=== PATIENT | male | born 1975 | race Caucasian/White ===

== ENCOUNTER 2019-10-14 08:00 | Outpatient (CLI) | payer OTHER, SELFPAY ==
--- NOTE | 2019-10-25 06:51 | SLEEP_ITS ---
CPAP Titration DATE OF STUDY: 10/14/2019 REASON FOR THE STUDY: History of obstructive sleep apnea syndrome 10 years ago, excessive daytime sleepiness and gasping. HISTORY: This patient is a 44-year-old male, 74 inches tall, weighing 290 pounds with a body mass index of 37.2. He was diagnosed with obstructive sleep apnea syndrome in 2007 at [facility]. He only used CPAP for about 2 months. Could not tolerate the mask. He had his left hip replaced in 2019, and now the right hip needed replacement as well. He sleeps poorly 2-4 hours at night with interrupted sleep. He feels tired during the day. He has been working rotating shifts. He has headaches on waking, drinks significant caffeine. He has loud constant snoring. He has trouble sleeping with cold. He gasps for breath at night. He rarely sweats at night or notices his heart pounding irregularly at night. On 07/07/2019, he had a home sleep test, which showed severe obstructive sleep apnea syndrome with a minimum saturation of 66%, which was sustained with 95 minutes below 88%. His AHI was 51.3. Oxygen desaturation index was 48.6. He had 195 apneas and 96 of them were obstructive, he had a few central or mixed apneas. Jose Manuel-Krause respiration is suspected. He returns at this time for titration. MEDICAL COMORBIDITIES: Atrial fibrillation, open-heart surgery for an atrial septal defect, bilateral hip replacements, knee surgery, cholecystectomy, and colitis. MEDICATIONS: 1. Colestipol 3 g daily. 2. Duloxetine 60 mg daily for anxiety. 3. Xarelto 20 mg a day. 4. Diltiazem 120 mg a day to control his atrial fib. HABITS: Half pack per day cigarettes. Caffeine, 5 servings a day. Alcohol, 1 to 2 servings a day. DESCRIPTION OF THE STUDY: On the Wayne Sleepiness Scale, his score was 5. This was conducted as a full night titration initially with CPAP, but he could not tolerate it, so quickly shifted to a bilevel titration. The stickK multiple channel system was used including EOG, EEG, submental EMG, EKG, nasal and oral airflow using thermistors, nasal pressure sensors, chest and abdominal belts for body position data and pulse oximetry. This study was scored using [facility] guidelines. Duration of the study was 443.1 minutes. The sleep time was 350.5 minutes. The sleep efficiency was 79.1%. Sleep latency was 12.4 minutes. REM latency was 155 minutes. There were 20 awakenings and he spent 18.6% of the study awake after sleep onset. This was 80.1 minutes. Sleep architecture showed 7.1% stage 1 sleep, 53.5% stage 2 sleep, 6% stage 3 sleep, and 14.7% stage REM. He spent 8.2% of the study supine, the remainder was nonsupine. Sleep architecture was abnormal with only 1 REM episode, but it was very dense and consolidated. This was in the middle of the study. The overall apnea-hypopnea index was 11. The obstructive index was 8.9, and the central index was 2.1. There was no supine REM unfortunately. The patient had 2 obstructive hypopneas in nonsupine REM for an index of 1.9. He had 1 central apnea and 15 obstructive hypopneas in supine non-REM for an index of 27. He had 14 obstructive apneas and 11 central apneas with 21 obstructive hypopneas in nonsupine non-REM for an index of 11. The supine index was 27. Nonsupine index was 9.1. Lowest desaturation 88%. The patient had 39 desaturations of 4% or greater for an index of 5.3. He spent 8.1 minutes below 88%, which was 1.8% of the study. The mean saturation was 94.1. AROUSALS: 142 arousals for an index of 19.1. He had 5 apneas for an index of 0.7, 13 hypopneas for an index of 1.8, 34 snores for an index of 4.6, 25 spontaneous for an index of 3.4, 65 limb movements for an index of 8.8. LIMB MOVEMENTS: 836 limb movements for an
== END 2019-10-14 08:01 | disposition home or self-care (01) ==
LOC: ANHCSM 08:00
PROVIDERS: PCP Internal Medicine; Visit Provider Internal Medicine Critical Care Medicine
DX: G47.33 Obstructive sleep apnea (adult) (pediatric) (principal)
CPT/HCPCS: 95811

== ENCOUNTER 2020-02-29 14:43 | Outpatient (CLI) | payer OTHER, SELFPAY ==
--- NOTE | ~2020-02-29 | XR_ITS ---
XR hip LT min 3V w AP pelvis 02/29/2020 15:10 Indication: Left hip pain Procedure: AP pelvis and 3 views left hip Comparison: No prior studies for comparison. Findings: There are bilateral total hip arthroplasties. Prosthesis appears well seated. No fracture o r traumatic malalignment. No focal soft tissue abnormality. No foreign bodies. Impression: 1: No acute bone or joint abnormality. Reviewed, dictated and finalized at location A. Impression: 1: No acute bone or joint abnormality.
== END 2020-02-29 14:44 | disposition home or self-care (01) ==
PROVIDERS: PCP Internal Medicine; Visit Provider Internal Medicine
DX: M25.552 Pain in left hip (principal); M54.5 Low back pain
CPT/HCPCS: 73502

== ENCOUNTER 2020-04-24 20:01 | Emergency (ER) | payer OTHER, SELFPAY ==
[2020-04-24 20:03] VITALS: BP 137/98; PULSE 66; RESP 19; TEMP 36.4; O2SAT 100
--- NOTE | 2020-04-24 21:00 | ED.BACK ---
HPI - Back Pain/Injury General Chief Complaint: Back Pain/Injury Stated Complaint: lower back Time Seen by Provider: 04/24/20 20:54 Source: patient Mode of arrival: ambulatory Limitations: no limitations History of Present Illness HPI Narrative: Patient is a 44-year-old male who presents to emergency department for evaluation of lower lumbar pain along the left side after slipping today catching himself did not go to the floor but has since had moderate aching pain worse with any activity or movement took ibuprofen with minimal improvement presents from urgent care for evaluation has history of chronic low back pain denies any bladder or bowel incontinence or retention or any radicular symptoms or paresthesias Related Data Allergies Allergy/AdvReac Type Severity Reaction Status Date / Time No Known Allergies Allergy Verified 05/04/17 16:14 poison ran Allergy Unknown Uncoded 12/03/18 15:31 Review of Systems Review of Systems: All systems reviewed & are unremarkable except as noted in HPI and below PMFSH Past Medical History Medical History Atrial fibrillation by electrocardiogram Back pain with sciatica Essential hypertension Primary osteoarthritis of both hips Tobacco use Family History Family History Father Cerebrovascular accident Mother Family history of type 2 diabetes mellitus Mild cognitive impairment Other Hypertension Social History Social History Smoking status: Former smoker Smoking end date: 08/24/15 Additional smoking assessment comments: Pt using nicotine replacement Alcohol intake: current Gender identity (if verbalized by the patient): Male Exam Narrative: Exam Narrative: GENERAL: Well-appearing, obese, uncomfortable, and in no acute distress. HEAD: Normocephalic, atraumatic. EYES: PERRLA and EOMI. ENT: Nares clear, no rhinorrhea or epistaxis. Mucous membranes moist. CHEST: Clear to auscultation. No respiratory distress. No wheezes rales or rhonchi HEART: Regular rate and rhythm. No murmur heard. EXTREMITIES: Normal range of motion. No edema. Midline and left lumbar tenderness to palpation SKIN: Warm, dry, no rash. NEURO: No focal deficits. Alert and oriented x3. Motor and sensory intact and symmetrical in the extremities PSYCH: Normal mood and affect. Course Course Emergency Course: Patient in the room in no distress does appear uncomfortable given medications and advised to follow-up with primary care Vital Signs Vital signs: Vital Signs Temperature 97.5 F L 04/24/20 20:03 Pulse Rate 66 04/24/20 20:03 Respiratory Rate 19 04/24/20 20:03 Blood Pressure 137/98 H 04/24/20 20:03 Pulse Oximetry 100 04/24/20 20:03 Temperature 97.5 F L 04/24/20 20:03 Pulse Rate 66 04/24/20 20:03 Respiratory Rate 19 04/24/20 20:03 Blood Pressure 137/98 H 04/24/20 20:03 Pulse Oximetry 100 04/24/20 20:03 MDM - Back Pain/Injury MDM Narrative Medical decision making narrative: Patients pain is positional in nature and localized to back without signs of cord compression or cauda equina based on neurological exam, skeletal exam and history. No fever or other significant factors to suggest osteomyelitis or spinal epidural abscess. No symptoms or signs to suggest pain is referred from abdominal or / cardiopulmonary sources. No pulsatile masses noted on exam. Patient ambulates with steady gait and is stable for outpatient management given case findings. Discharge Plan Discharge Clinical Impression: Lumbar back pain Patient Disposition: Home, Self-Care Condition: Stable Instructions: Antibiotic Form, Acute Low Back Pain (ED) Additional Instructions: Medications as needed and prescribed. Limit lifting and bending. You may apply heat or cold to the area as needed. Follow up with your doctor for further care in the next 5 days. Co
[2020-04-24] MEDS: diazePAM 5 MG TABLET PO (21:16)
[2020-04-24 21:31] VITALS: BP 132/60; PULSE 70; RESP 20; O2SAT 99
== END 2020-04-24 21:34 | disposition home or self-care (01) ==
PROVIDERS: Emergency Provider Emergency Medicine; PCP Internal Medicine
DX: M54.5 Low back pain (principal); I10 Essential (primary) hypertension; I48.91 Unspecified atrial fibrillation; M16.0 Bilateral primary osteoarthritis of hip; Z79.01 Long term (current) use of anticoagulants; Z87.891 Personal history of nicotine dependence
CPT/HCPCS: 99283; A9270

== ENCOUNTER → 2020-04-27 07:50 | Outpatient (CLI) | payer OTHER, SELFPAY ==
--- NOTE | ~2020-04-27 | MR_ITS ---
EXAMINATION: MR lumbar spine wo con DATE: 04/27/2020 08:27 INDICATION: Low back pain. Recent fall. TECHNIQUE: Magnetic resonance imaging (MRI) of the lumbar spine was performed without intravenous con trast. Sequences included sagittal T2-weighted FSE, sagittal T2-weighted FS FSE, sagittal T1-weighted FSE, and axial T2-weighted FSE. COMPARISON: Lumbar spine MRI 10/27/2017 FINDINGS: There is 12 degrees levoscoliosis of thoracolumbar spine. There is 3 mm retrolisthesis of L 2 on L3. There is mild chronic anterior wedging of T10-L2 vertebral bodies. There is a compression fr acture superior endplate of L5 with less than 1/5 loss of height, low signal fracture line, and bone marrow edema. There are Schmorl's nodes at most levels. There is mildly decreased disc height at L2-L 3 and L4-L5. The distal spinal cord signal intensity is normal. The conus medullaris is at T12-L1. Th e following disc levels are specifically discussed: L1-L2: There is a left central protrusion. There is no facet joint osteoarthritis. There is no neural foraminal stenosis. There is mild central canal stenosis. L2-L3: The disc is bulging and has an annular fissure. There is mild bilateral facet joint osteoarthr itis. There is moderate right and mild left neural foraminal stenosis. There is mild central canal st enosis. L3-L4: The disc is bulging and has an annular fissure. There is mild bilateral facet joint osteoarthr itis. There is mild bilateral neural foraminal stenosis. There is mild central canal stenosis. L4-L5: The disc is bulging with superimposed right central extrusion. There is mild bilateral facet j oint osteoarthritis. There is mild bilateral neural foraminal stenosis. There is mild central canal s tenosis. L5-S1: The disc is bulging and has an annular fissure. There is mild right and moderate left facet flora int osteoarthritis. There is mild bilateral neural foraminal stenosis. There is mild central canal st enosis. IMPRESSION: 1. Mild acute/subacute compression fracture of L5. 2. Mild lumbar spondylosis, stable from 10/27/2017. Reviewed, dictated and finalized at location A.
== END ==
PROVIDERS: PCP Internal Medicine; Visit Provider Nurse Practitioner
DX: M54.5 Low back pain (principal); S32.050A Wedge compression fracture of fifth lumbar vertebra, initial encounter for closed fracture; M47.816 Spondylosis without myelopathy or radiculopathy, lumbar region
CPT/HCPCS: 72148

== ENCOUNTER → 2021-02-06 12:29 | Outpatient (CLI) | payer OTHER, SELFPAY ==
--- NOTE | ~2021-02-06 | XR_ITS ---
XR lumbar spine 6V w bending DATE: 02/06/2021 13:49 INDICATION: Low back pain TECHNIQUE: Standing AP and lateral views. Standing flexion and extension lateral views. Bilateral supine oblique views COMPARISON: 04/2020 MRI lumbar spine FINDINGS: There is diffuse osteopenia. There is levoscoliosis of the thoracolumbar spine. Status post vertebroplasty at L5. There is mild to moderate degenerative disc disease of the lumbar spine. No spondylolysis or spondylolisthesis. No instability is evident on flexion or extension. Status post bilateral total hip arthroplasty. IMPRESSION: Diffuse osteopenia Status post vertebroplasty at L5 for history of mild acute/subacute compression fracture diagnosed on 04/2020 Mild to moderate degenerative disc disease lumbar spine Reviewed, dictated and finalized at location A.
--- NOTE | ~2021-02-06 | MR_ITS ---
EXAMINATION: MR lumbar spine wo con EXAM DATE: 02/06/2021 13:07 INDICATION: Lumbago, radiculopathy lumbago, radiculopathy . Left leg pain. States lifting injury 3-4 weeks ago, heard pop. History of fracture. TECHNIQUE: Multi-sequential, multiplanar MR images of the lumbar spine were obtained without contrast . Sagittal T1, T2, T2 fat saturation images. Axial T2 weighted images. Comparison is made to prior examination from 04/27/2020. FINDINGS: The conus medullaris terminates at the T12-L1 level and has normal signal intensity and mor phology. There is trivial mild compression fracture superior endplate of L5. Mild diffuse loss of th e lower thoracic and upper lumbar vertebral body heights. Mild to moderate diffuse thoracolumbar disc disease. There are no suspicious marrow signal abnormalities. Paraspinal soft tissue is unremarkable . Level by level evaluation: T12-L1: There is a minimal diffuse disc bulge. Facet arthropathy: Minimal. Neural foraminal stenosis: No stenosis. Central canal stenosis: No stenosis. L1-L2: There is a mild diffuse disc bulge. Facet arthropathy: Mild. Neural foraminal stenosis: No stenosis. Central canal stenosis: No stenosis. L2-L3: There is a mild diffuse disc bulge. Facet arthropathy: Mild. Neural foraminal stenosis: Mild right. Central canal stenosis: No stenosis. L3-L4: There is a mild diffuse disc bulge. Facet arthropathy: Mild. Neural foraminal stenosis: No stenosis. Central canal stenosis: No stenosis. L4-L5: There is a mild diffuse disc bulge. Facet arthropathy: Mild to moderate. Neural foraminal stenosis: Mild bilateral. Central canal stenosis: No stenosis. L5-S1: There is a mild diffuse disc bulge. Facet arthropathy: Mild. Neural foraminal stenosis: Mild to moderate right. Central canal stenosis: No stenosis. IMPRESSION: 1. Mild to moderate lumbar spondylosis. 2. Treated mild L5 compression fracture. Reviewed, dictated and finalized at location B.
== END ==
PROVIDERS: Visit Provider Nurse Practitioner Family
DX: M47.25 Other spondylosis with radiculopathy, thoracolumbar region (principal); M48.05 Spinal stenosis, thoracolumbar region; M47.27 Other spondylosis with radiculopathy, lumbosacral region; M48.07 Spinal stenosis, lumbosacral region; M41.9 Scoliosis, unspecified; M85.88 Other specified disorders of bone density and structure, other site
CPT/HCPCS: 72114; 72148

== ENCOUNTER → 2022-04-17 15:17 | Outpatient (CLI) | payer OTHER, SELFPAY ==
--- NOTE | ~2022-04-17 | XR_ITS ---
XR knee LT min 4V 04/17/2022 15:37 Indication: Left knee pain Procedure: 4 views left knee Comparison: No prior studies for comparison. Findings: There is moderate osteoarthritis of the left knee. No fracture or traumatic malalignment. N o significant joint effusion. No soft tissue abnormality. No foreign bodies. Impression: 1: Moderate osteoarthritis of the left knee. Reviewed, dictated and finalized at location A. Impression: 1: Moderate osteoarthritis of the left knee.
--- NOTE | ~2022-04-17 | XR_ITS ---
XR knee RT min 4V 04/17/2022 15:37 Indication: Right knee pain Procedure: 4 views right knee Comparison: No prior studies for comparison. Findings: There is mild-moderate tricompartment osteoarthritis. No fracture or traumatic malalignment . No significant joint effusion. Impression: 1: Mild-moderate osteoarthritis of the right knee. Reviewed, dictated and finalized at location A. Impression: 1: Mild-moderate osteoarthritis of the right knee.
== END ==
PROVIDERS: PCP Internal Medicine; Visit Provider Nurse Practitioner Family
DX: M17.0 Bilateral primary osteoarthritis of knee (principal)
CPT/HCPCS: 73564

== ENCOUNTER 2024-06-10 15:56 | Outpatient (CLI) | payer OTHER, SELFPAY ==
--- NOTE | ~2024-06-10 | MR_ITS ---
MRI of the lumbar spine Clinical History: Back pain Technique: Axial T2-weighted images, and sagittal T1-weighted, T2-weighted, and T2 fat-sat images wer e acquired. Findings: No acute fracture evident. There is minimal chronic loss of height of T12 and L1. Prior samir tebroplasty at L5 noted, without significant loss of height. There is minimal grade 1 retrolisthesis of L2 over L3. No suspicious bone marrow signal abnormality seen. At L1-L2, there is minimal disc bulge and mild facet arthropathy. There is minimal thecal sac maxine padilla at this level, partially due to mildly prominent epidural fat. Neural foramina are preserved. At L2-L3, there is mild disc bulge and moderate to advanced facet arthropathy. There is mild central canal stenosis/thecal sac compression, again with focally prominent epidural fat present. Neural fora odalis are preserved. At L3-L4, there is mild diffuse disc bulge with moderate facet arthropathy. Prominent epidural fat ag ain contributes to moderate thecal sac compression at this level. Neural foramina are preserved. At L4-L5, there is mild disc bulge and moderate facet arthropathy. No spinal canal stenosis or defini te neural foraminal narrowing. At L5-S1, there is minimal disc bulge and moderate facet arthropathy. No central canal stenosis or de finite neural foraminal narrowing. Paravertebral soft tissues are unremarkable. Impression: Moderate thecal sac compression the upper lumbar spine, as detailed above, with mild degenerative amaury nges, and probably most likely related to prominent epidural fat at these levels. Chronic compression deformities, as above. Reviewed, dictated and finalized at [facility]. Impression: Moderate thecal sac compression the upper lumbar spine, as detailed above, with mild degenerative changes, and probably most likely related to prominent epidu ral fat at these levels. Chronic compression deformities, as above.
== END 2024-06-10 15:57 | disposition home or self-care (01) ==
PROVIDERS: PCP Nurse Practitioner; Visit Provider Nurse Practitioner Family
DX: M51.87 Other intervertebral disc disorders, lumbosacral region (principal); M54.51 Vertebrogenic low back pain
CPT/HCPCS: 72148

== ENCOUNTER 2024-07-01 11:17 | Emergency (ER) | payer OTHER, SELFPAY ==
--- NOTE | ~2024-07-01 | XR_ITS ---
EXAMINATION: XR chest 2V DATE: 07/01/2024 12:00 INDICATION: Cough and shortness of breath. TECHNIQUE: Frontal and lateral views of the chest were obtained on 4 radiographs. COMPARISON: Chest 2 views 05/20/2017 FINDINGS: There is no pneumonia, pleural effusion, pneumothorax. The heart size is normal. Small medi an sternotomy wires are noted. IMPRESSION: 1. No acute cardiopulmonary disease. Reviewed, dictated and finalized at location A. RITY CONTROLS ASSESSOR
--- NOTE | 2024-07-01 11:22 | ED.URI ---
HPI - URI/Sore Throat General Chief Complaint: Upper Respiratory Infection Stated Complaint: upper respiratory infection Time Seen by Provider: 07/01/24 11:22 Source: patient Mode of arrival: ambulatory Limitations: no limitations History of Present Illness HPI Narrative: Patrick is a 48-year-old male patient presenting to the clinic today with complaints of sinus congestion, shortness of breath, cough, and chest congestion x1 week. He reports bringing up some green phlegm. He does have a history of sleep apnea and wears a CPAP at night. Former smoker. MD elicited complaint: cough, rhinorrhea, nasal congestion, sinus pain and other (Chest congestion) Related Data Home Medications Medication Instructions Recorded Confirmed amlodipine 5 mg tablet 5 mg PO DAILY 06/26/22 07/01/24 atorvastatin 80 mg tablet 40 mg PO DAILY 05/12/24 07/01/24 sertraline 50 mg tablet 75 mg PO DAILY 05/12/24 07/01/24 baclofen 10 mg tablet 10 mg PO BID muscle spasm 07/01/24 07/01/24 colestipol 1 gram tablet 1 g DIRECTED 07/01/24 07/01/24 tramadol 50 mg tablet 50 mg PO BID pain 07/01/24 07/01/24 Allergies Allergy/AdvReac Type Severity Reaction Status Date / Time No Known Allergies Allergy Verified 05/12/24 13:29 poison ran Allergy Unknown Unknown Uncoded 07/01/24 11:38 Review of Systems Review of Systems: Pertinent positives per HPI. Patient denies any fever, chills, rash, headache, visual changes, dizziness, chest pain, palpitations, nausea, vomiting, diarrhea, constipation, abdominal pain, or any urinary issues. [facility] Past Medical History Medical History ASD (atrial septal defect) Atrial fibrillation by electrocardiogram Back pain with sciatica Essential hypertension Primary osteoarthritis of both hips Tobacco use Surgical History Surgical History H/O hernia repair H/O knee surgery History of appendectomy History of hip replacement BL History of kyphoplasty 07/26/20 Hx of cholecystectomy Family History Family History Father Cerebrovascular accident Mother Family history of type 2 diabetes mellitus Lewy body dementia Lewy body Parkinson disease Other Hypertension Social History Social History (Reviewed 07/01/24 @ 11:55 by GALINA Maya Social History: Caffeine-daily Smoking packs per day: 0.5 Smoking cigarettes per day: 10.0 Smoking status: Former smoker Smoking end date: 02/09/21 Additional smoking assessment comments: Pt using nicotine replacement Alcohol intake: current Alcohol use details: daily-beer Substance use: never Lack of Transportation: No Lack of Food: Never True Current Housing: I Have Housing Concerned About Future Housing: No Difficulty Paying Gas/Electric Bills: No Difficulty Paying for Meds: No Currently Unemployed: No Education: Bachelor's Degree Difficulty w/ Childcare or Family Care: YES Living arrangements: with family Occupation/Education: occupation Gender identity (if verbalized by the patient): Male Comments At the time of my signature, I reviewed and agree with the nursing past medical, surgical, social, and family history. There is no relevant family history pertinent to the patient complaint. Exam Narrative: General: Well-developed, obese, in no apparent distress Head: Normocephalic, atraumatic Eyes: Pupils equally round and reactive to light bilaterally, EOM intact, sclera and conjunctive clear, no discharge, lids normal Ears: TMs intact and clear, ear canals clear, no drainage, grossly hearing normal. Nose: Nares patent, green nasal discharge, moderate inflammation, maxillary and frontal sinus tenderness. Mouth: Oral pharynx without lesions or masses, good dentition, MMM. Postnasal drip Neck: Supple, trachea midline, no enlargement of anterior or posterior cervical nodes, no thyroid masses or goiter palpable. Cardio: Regular rate and rhythm, s1 and s2 normal, no murmur appreciated. Resp: Faint wheezing and coarse lung sounds, no rhonchi, rales, wheezing or rubs Course Course Emergency Course: Portions of this record may have been created with voice recognition software. Level of Care: Express Care Visit Vital Signs Vital signs: Vital Signs Temperature 36.4 C 07/01/24 11:32 Pulse Rate 73 07/01/24 11:32 Respiratory Rate 16 07/01/24 11:32 Blood Pressure 142/88 H 07/01/24 11:32 Pulse Oximetry 98 07/01/24 11:32 Oxygen Delivery Room Air 07/01/24 11:32 Temperature 36.4 C 07/01/24 11:32 Pulse Rate 73 07/01/24 11:32 Respiratory Rate 16 07/01/24 11:32 Blood Pressure 142/88 H 07/01/24 11:32 Pulse Oximetry 98 07/01/24 11:32 Oxygen Delivery Room Air 07/01/24 11:32 Vital signs reviewed MDM - URI/Sore Throat MDM Narrative Medical decision making narrative: At the time of visit patient is resting comfortably on the exam table. Patient appears to be nontoxic. Diagnostics: Chest x-ray was performed and was negative for any acute cardiopulmonary process. Plan: I suspect patient has sinusitis/bronchitis. Prescription for Tessalon Perles, prednisone, Augmentin, and albuterol inhaler. Supportive measures were discussed with the patient and they voiced understanding discharge instructions and agrees to treatment plan. Return precautions reviewed Differential Diagnosis Differential diagnosis: Likely upper respiratory infection, otitis media, sinusitis, viral infection, bronchitis, influenza, pharyngitis and other (COVID) Discharge Plan Discharge Clinical Impression: Sinobronchitis Patient Disposition: Home, Self-Care Condition: Stable Instructions: Antibiotic Form, Acute Bronchitis (ED), Rhinosinusitis (ED) Additional Instructions: Chest x-rays negative for any acute cardiopulmonary process. I suspect you have acute sinobronchitis Take prescription medications only as prescribed-Augmentin, Tessalon Perles, prednisone, and albuterol inhaler Increase fluids and stay well hydrated Tylenol/motrin for pain/fever Flonase and OTC antihistamines as directed Vicks vapor rub to open sinuses Sinus rinses for congestion Cepacol spray, cough drops, throat lozenges, warm tea with honey/lemon, gargle salt water to soothe throat BRAT diet for diarrhea Clear liquids x 24 hours then advance as tolerated for nausea/vomiting Go to the ED if you develop a worsening in your condition- high fever not controlled by Tylenol or Motrin, dehydration, weakness, lethargy, shortness of breath, or chest pain. Follow up with your PCP in 3-5 days if symptoms persist. Prescriptions: New benzonatate 200 mg capsule 200 mg PO TID 7 Days Qty: 21 0RF prednisone 20 mg tablet 40 mg PO DAILY 5 Days Qty: 10 0RF albuterol sulfate 90 mcg/actuation HFA aerosol inhaler 2 puff inhalation Q4-6H PRN (Reason: shortness of breath or wheezing) 30 Days Qty: 8.5 0RF amoxicillin-pot clavulanate 875-125 mg tablet 1 tablet PO Q12H 10 Days Qty: 20 0RF No Action tramadol 50 mg tablet 50 mg PO BID baclofen 10 mg tablet 10 mg PO BID colestipol 1 gram tablet 1 g DIRECTED Rx Instructions: TAKE INSTRUCTED BY YOUR PRESCRIBER Xarelto 20 mg tablet 20 mg PO QPM Qty: 30 0RF Rx Instructions: must administer with evening meal amlodipine 5 mg tablet 5 mg PO DAILY atorvastatin 80 mg tablet 40 mg PO DAILY sertraline 50 mg tablet 75 mg PO DAILY Rx Instructions: To be take with the 25mg tablet-DUE FOR APPOINTMENT IN MARCH sertraline 25 mg tablet 25 mg PO DAILY Qty: 90 1RF Rx Instructions: To be taken with the 50mg tablet-DUE FOR APPOINTMENT IN MARCH amoxicillin 500 mg tablet 2,000 mg PO ONCE Qty: 4 0RF Patient Comments: on hold for teeth cleaning Rx Instructions: To be taken 30-60 minutes prior to your dental procedure. Follow-up/Referrals: Horacio Benitez DO [Primary Care Provider] - Stand Alone Forms: Work/School Release IP Time of Disposition: 12:25 Quality NIHSS Nursing Documentation ED NIHSS nursing documentation: reviewed/agree
[2024-07-01 11:32] VITALS: BP 142/88; PULSE 73; RESP 16; TEMP 36.4; O2SAT 98
== END 2024-07-01 12:30 | disposition home or self-care (01) ==
PROVIDERS: Emergency Provider Nurse Practitioner Family; PCP Internal Medicine
DX: J32.9 Chronic sinusitis, unspecified (principal); J40 Bronchitis, not specified as acute or chronic; Q21.10 Atrial septal defect, unspecified; I48.91 Unspecified atrial fibrillation; I10 Essential (primary) hypertension; M16.0 Bilateral primary osteoarthritis of hip; G47.30 Sleep apnea, unspecified; Z96.643 Presence of artificial hip joint, bilateral
CPT/HCPCS: 71046; 99213; G0463

== ENCOUNTER 2024-08-22 14:12 | Outpatient (CLI) | payer OTHER, SELFPAY ==
--- NOTE | ~2024-08-22 | XR_ITS ---
XR knee LT 3V Ordering provider: Kaylen Regan NP History: . M25.569 - Pain in unspecified knee . Comparison: None. FINDINGS: BONES: No acute fracture or dislocation. JOINT SPACES: Severe Narrowing of the lateral compartment. Narrowing of the patellofemoral joint. Mar ginal osteophytes in the patella. SOFT TISSUES: Normal. IMPRESSION: No acute osseous abnormality left knee. Severe osteoarthritic changes. Reviewed, dictated and finalized at location A. SERVICE OBSERVER
== END 2024-08-22 14:13 | disposition home or self-care (01) ==
LOC: MICIMG 14:13
PROVIDERS: PCP Internal Medicine; Visit Provider Nurse Practitioner
DX: M17.12 Unilateral primary osteoarthritis, left knee (principal)
CPT/HCPCS: 73562

== ENCOUNTER 2025-02-21 09:36 | Outpatient (CLI) | payer OTHER, SELFPAY ==
--- OUTSIDE RECORDS SUMMARY | 2025-02-21 09:49 | XMS_ITS | Clinical Summary ---
Author Organization [facility] [address] Address [address] [place] [address] Care Team Providers Care Mechanical Integrity Engineer Name Role Phone Mary Benitez DO Primary Care Provider +1- [phone] Allergies No known active allergies Medications colestipol (COLESTID) 1 gram tablet Take 3 tablets (3 g total) by mouth daily Active acetaminophen (TYLENOL) 500 mg tablet Take 2 tablets (1,000 mg total) by mouth every 6 (six) hours as needed 02/11/2021 Active nitroglycerin (NITROSTAT) 0.[address] 0.4 mg under the tongue every 5 (five) minutes as needed 02/11/2021 Active HYDROcodone-acet aminophen (NORCO) 10-325 mg per tablet Take 1 tablet by mouth every 4 (four) hours as needed 10/15/2023 Active sertraline (ZOLOFT) 25 mg tablet Take 1 tablet (25 mg total) by mouth daily Take with 50 mg to equal 75 mg 09/29/2023 Active sertraline (ZOLOFT) 50 mg tablet Take 1 tablet (50 mg total) by mouth daily Take with 25 mg to equal 75 mg 09/29/2023 Active traMADoL (ULTRAM) 50 mg tablet Take 1 tablet (50 mg total) by mouth every 8 (eight) hours as needed 10/06/2023 Active baclofen (LIORESAL) 10 mg tablet Take 1 tablet (10 mg total) by mouth 3 (three) times a day Active amLODIPine (NORVASC) 5 mg tablet Take 1 tablet (5 mg total) by mouth daily 90 tablet 2 07/11/2024 Active atorvastatin (LIPITOR) 80 mg tabletIndication s:Chest pain, unspecified type Take 1 tablet (80 mg total) by mouth nightly 90 tablet 2 07/11/2024 Active Xarelto 20 mg tabletIndication s:Atrial fibrillation, unspecified type (HCC) TAKE 1 TABLET DAILY WITH DINNER 90 tablet 3 10/17/2024 Active Active Problems Problem Noted Date Diagnosed Date PVC (premature ventricular contraction) 10/17/19 25 Severe obesity 10/17/2024 Body mass index (BMI) 45.0-49.9, adult 5 Symptomatic bradycardia 06/19/2022 Tobacco use disorder 06/11/2020 Syncope and collapse 06/13/2019 Aftercare following right hip joint replacement surgery 05/06/2019 Primary osteoarthritis of left hip 11/18/2018 Overview (11/18/2018): Added automatically from request for surgery [id number] Hip pain, bilateral 06/18/2018 Lumbar disc herniation 03/09/2018 Overview (03/09/2018): Pain managed with very low dose naltrexone made at compounding pharmacy [facility] palsy 05/15/2017 Paroxysmal atrial fibrillation 04/17/2017 Assessment & Plan (05/31/2018 9:30 AM CDT): Continue Cardizem and Xarelto. Will repeat echocardiogram because last echo shows mild systolic heart failure and dilated aortic root. Assessment & Plan (11/12/2017 6:33 PM CDT): D/C amiodarone. Start metoprolol 25mg bid. Chest pain 04/17/2017 Assessment & Plan (11/12/2017 6:41 PM CDT): Atypical chest pain. However, if he continues to have chest pain, consider ischemic evaluation. Chronic anticoagulation 04/17/2017 Assessment & Plan (05/31/2018 9:31 AM CDT): No bleeding issues. Morbid obesity with BMI of 40.0-44.9, adult 03/25 Assessment & Plan (05/31/2018 9:31 AM CDT): Patient cannot exercise because of severe back pain. Counseled patient about the importance of diet modification to help him lose weight. Assessment & Plan (11/12/2017 6:34 PM CDT): Counseled regarding diet modification. He has severe back pain and cannot do much activities. VALENTINA (obstructive sleep apnea) 04/17/2017 Assessment & Plan (05/31/2018 9:31 AM CDT): Patient is still not were drink CPAP. He has to undergo sleep study. Chronic fatigue 04/17/2017 Resolved Problems Problem Noted Date Diagnosed Date Resolved Date Primary osteoarthritis of right hip 03/29/2019 05/06/2019 Overview (03/29/2019): Added automatically from request for surgery [id number] Surgical History Surgery Date Site/Laterality Comments APPENDECTOMY Appendectomy HERNIA REPAIR Hernia repair FLUORO GUIDED INJECTION HIP RIGHT 05/27/2018 Right FL FLUORO GUIDED INJECTION H IP LEFT 06/15/2018 Left FLUORO GUIDED ASPIRATION OR INJECTION LARGE JOINT RIGHT 07/08/2018 Right FLUORO GUIDED ASPIRATION OR INJECTION LARGE JOINT LEFT 07/22/2018 Left CHOLECYSTECTOMY [id number] ASD REPAIR 08/24/1978 - 08/23/1979 HIP SURGERY Left JOINT REPLACEMENT Medical History Medical History Date Comments Atrial arrhythmia Atrial arrhyth navya Obstructive sleep apnea syndrome Obstructive sleep apnea Atrial septal defect ASD - Atria l septal defect Hx Other Medical Cholecystectomy planned History of knee surgery History of knee surgery Morbid obesity with BMI of 4 0.0-44.9, adult (HCC) 04/17/2017 Tobacco use 04/17/2017 VALENTINA (obstructive sleep apnea) 04/17/2017 Chronic fatigue 04/17/2017 Anxiety Atrial fibrillation (HCC) Hypertension Inflammatory bowel disease Peripheral neuropathy Scoliosis Heart beat abnormality Thyroid disease Hyperlipidemia Family History Medical History Relation Name Comments Arthritis Father Clotting disorder Father Heart disease Father Hypertension Father Mental illness Father Other Father Alive and well; Spondylolisthesis Father Stroke Father Arthritis Mother Diabetes Mother Hypertension Mother Mental illness Mother Other Mother Alive and well; Relation Name Status Comments Father Alive Mother Alive Social History Tobacco Use Types Packs/Day Years Used Date Smoking Tobacco: Former Cigarettes Smokeless Tobacco: Never Tobacco Cessation:Counseling Given: Not Answered Comments:Smoking History Packs/day: 20 Cigarettes Alcohol Use Standard Drinks/Week Comments Yes 4 (1 standard drink = 0.6 oz pur e alcohol) OCCASIONAL PHQ-2 Answer Date Recorded PHQ-2 Score 0 04/14/2019 Sex and Gender Information Value Date Recorded Sex Assigned at Not on file Legal Sex Male 7:58 PM PAYROLL CONSULTANT Gender Identity Not on file Sexual Orientation Not on file Obstetrics History Last Filed Vital Signs Vital Sign Reading Time Taken Comments Blood Pressure 124/90 10/17/2024 9:02 AM PAYROLL CONSULTANT Pulse 67 10/17/2024 9:02 AM PAYROLL CONSULTANT Temperature 36.3 C (97.3 F) 06/20/2022 5:30 PM CDT Respiratory Rate 16 10/22/2023 11:24 AM PAYROLL CONSULTANT Oxygen Saturation 97% 10/17/2024 9:02 AM PAYROLL CONSULTANT Inhaled Oxygen Concentration - - Weight 165.6 kg (365 lb) 10/17/2024 9:02 AM PAYROLL CONSULTANT Height 188 cm (6' 2) 10/17/2024 9:02 AM PAYROLL CONSULTANT Body Mass Index 46.86 10/17/2024 9:02 AM PAYROLL CONSULTANT Plan of Treatment Health Maintenance Due Date Last Done Comments Colon Cancer Screening-Colonoscopy 1976 Hepatitis C Screening 1976 Hepatitis B Screening 1994 Regular Well Visit/Exam 18-64 1994 Depression Screening 11/19/2019 11/18/2018 Influenza Vaccine (#1) 2025 DTaP/Tdap/Td Vaccine (2 - Td or Tdap) 04/19/2028 04/19/2018 Pneumococcal vaccine <65 Aged Out No longer eligible based on patient's age to complete this topic Medical Devices Implanted Type Area Clinic Physician Director Device Identifier Shelf Expiration Date Model / Serial / Lot [employer] [id number] Novato 58mm 36mm Hip Neutral Liner Acetabular Altrx Sterile Latex Free - [id number] Implanted:Qty: 1 on 12/01/2018 by Hernando Ham MD at [facility] Left: Hip [employer] 10/22/2023 [id number] / / [id number] [employer] [id number] Novato 58mm Sector Hip Shell Acetabular Gription Sterile Latex Free - [id number] Implanted:Qty: 1 on 12/01/2018 by Hernando Ham MD at [facility] Left: Hip [employer] 10/21/2028 [id number] / / [id number] [employer] [id number] Actis Collar Hip 7 Standard Offset Stem Femoral - [id number] Implanted:Qty: 1 on 12/01/2018 by Hernando Ham MD at [facility] Left: Hip [employer] 10/21/2028 [id number] / / [id number] [employer] [id number] Articul/Layo 36mm Cementless Hip +8.5mm 12/14 Taper Head Femoral Latex Free - [id number] Implanted:Qty: 1 on 12/01/2018 by Hernando Ham MD at [facility] Left: Hip [employer] 09/23/2023 [id number] / / [id number] [employer] [id number] Novato 58mm Sector Hip Shell Acetabular Gription Sterile Latex Free - [id number] Implanted:Qty: 1 on 04/27/2019 by Hernando Ham MD at [facility] Right: Hip [employer] 02/20/2029 [id number] / / [id number] [employer] [id number] Novato 58mm 36mm Hip Neutral Liner Acetabular Altrx Sterile Latex Free - [id number] Implanted:Qty: 1 on 04/27/2019 by Hernando Ham MD at [facility] Right: Hip [employer] 03/23/2024 [id number] / / [id number] [employer] [id number] Actis Collar Hip 8 Standard Offset Stem Femoral - [id number] Implanted:Qty: 1 on 04/27/2019 by Hernando Ham MD at [facility] Right: Hip [employer] 01/21/2029 [id number] / / [id number] [employer] [id number] Articul/Layo 36mm Cementless Hip +8.5mm 12/14 Taper Head Femoral Latex Free - [id number] Implanted:Qty: 1 on 04/27/2019 by Hernando Ham MD at [facility] Right: Hip [employer] 02/21/2024 [id number] / / [id number] Insurance [facility] Advance Directives For more information, please contact: [phone] * Full Code (Latest Code Status on File) Date Activated Date Inactivated Comments 06/20/2022 1:38 AM 06/20/2022 11:03 PM * Full Code Date Activated Date Inactivated Comments 04/27/2019 1:56 PM 04/28/2019 9:21 PM * Full Code Date Activated Date Inactivated Comments 12/01/2018 4:43 PM 12/02/2018 6:40 PM Care Teams Mechanical Integrity Engineer Relationship Specialty Start Date End Date Mary Benitez DO PCP - General 12/12/16
--- OUTSIDE RECORDS SUMMARY | 2025-02-21 09:49 | XMS_ITS | Encounter Summary ---
Author Organization [facility] Address [address] [place] [address] Care Team Providers Care Solids Control Technician Name Role Phone Horacio Benitez DO Primary Care Provider +1- [phone] Encounter Details Date Type Department Care Team (Late st Contact Info) Description 12/18/2016 Orders Only [facility] ProviderCherri MD [address] [place] [address] Social History Tobacco Use Types Packs/Day Years Used Date Smoking Tobacco: Never Assessed Sex and Gender Information Value Date Recorded Sex Assigned at Not on file Legal Sex Male 7:58 PM ARTIST AGENT Gender Identity Not on file Sexual Orientation Not on file documented as of this encounter Plan of Treatment Not on file documented as of this encounter Procedures Procedure Name Priority Date/Time Associated Diagnosis Comments CARDIOLOGY REPORT 12/18/2016 documented in this encounter Results * CARDIOLOGY REPORT (12/18/2016) Anatomical Region Laterality Modality Other Narrative 12/18/2016 Ordered by an unspecified provider. Historical Provider [facility] L[facility] ARMSTRONG Final Result documented in this encounter Visit Diagnoses Not on filedocumented in this encounter Care Teams Solids Control Technician Relationship Specialty Start Date End Date Horacio Benitez DO PCP - General 12/12/16 documented as of this encounter
--- OUTSIDE RECORDS SUMMARY | 2025-02-21 09:49 | XMS_ITS | Encounter Summary ---
Author Organization [facility] Address [address] [facility] [facility] [address] [place] [address] Care Team Providers Care Dining Car Server Name Role Phone Horacio Benitez DO Primary Care Provider +1- [phone] Encounter Details Date Type Department Care Team (Late st Contact Info) Description 01/09/2017 Orders Only [facility] ProviderCherri MD [address] [place] [address] Social History Tobacco Use Types Packs/Day Years Used Date Smoking Tobacco: Never Assessed Sex and Gender Information Value Date Recorded Sex Assigned at Not on file Legal Sex Male 7:58 PM POSTDOCTORAL FELLOW Gender Identity Not on file Sexual Orientation Not on file documented as of this encounter Plan of Treatment Not on file documented as of this encounter Procedures Procedure Name Priority Date/Time Associated Diagnosis Comments CARDIOLOGY REPORT 01/09/2017 documented in this encounter Results * CARDIOLOGY REPORT (01/09/2017) Anatomical Region Laterality Modality Other Narrative 01/09/2017 Ordered by an unspecified provider. Historical Provider [facility] LISA ARMSTRONG Final Result documented in this encounter Visit Diagnoses Not on filedocumented in this encounter Care Teams Dining Car Server Relationship Specialty Start Date End Date Horacio Benitez DO PCP - General 12/12/16 documented as of this encounter
--- OUTSIDE RECORDS SUMMARY | 2025-02-21 09:49 | XMS_ITS | Clinical Summary ---
Author Organization [facility] Address [address] [place] [address] Care Team Providers Care Pie Bakery Laborer Name Role Phone Emmanuel Mary Pedro DO Primary Care Provider [phone] Source Comments [facility],non-owned Affiliates and Associated Physician Practices is amultiple site organization consisting of ambulatory clinics and hospital sitesin [place], [place], [place] and [place]. This disclosure is being madepursuant to the Care Everywhere program and may not contain all information available regarding this patient. Last updated 18.[facility] Allergies No known active allergies Medications * Be aware that medications may not be up to date on this document. Alwaysverify current medications with the patient. colestipol (COLESTID) 1 GM tablet Take 3 g by mouth once daily Active dilTIAZem ER 24hr (TIAZAC) 120 MG capsule Take 120 mg by mouth once daily 1 Active DULoxetine (CYMBALTA) 60 MG capsule Take 60 mg by mouth once daily Active lidocaine (LIDODERM) 5 % patch Apply 1 patch to affected area once daily Active rivaroxaban (XARELTO) 20 MG tablet TAKE 1 TABLET DAILY 1 Active acetaminophen (TYLENOL) 500 MG tablet Take 2 (two) tablets by mouth every 6 hours as needed Maximum allowable Acetaminophen amount = 4 Grams (4000 mg) / 24 hours. 1 Active aspirin (ASPIRIN) 81 MG chew tablet Take 1 (one) tablet by mouth once daily 30 tablet 11 1 Active aluminum-magnes ium-simethicone (MAALOX;MYLANTA ) 200-200-20 MG/5ML suspension Take 20 mL by mouth every 6 hours as needed 1 Active isosorbide mononitrate CR 24hr (IMDUR) 30 MG tabletIndicatio ns:Stable Angina Pectoris Take 1 (one) tablet by mouth once daily Reasons: Stable Angina Pectoris 30 tablet 3 1 Active nitroGLYCERIN (NITROSTAT) 0.4 MG tablet Dissolve 1 (one) tablet under the tongue every 5 minutes as needed for Angina 30 tablet 1 1 Active atorvastatin (LIPITOR) 80 MG tablet Take 1 (one) tablet by mouth at bedtime 30 tablet 11 1 Active folic acid (FOLVITE) 1 MG tabletIndicatio ns:Alcohol dependence with unspecified alcohol-induced disorder (HCC) Take 1 (one) tablet by mouth once daily 30 tablet 1 Active nicotine (NICODERM CQ) 14 MG/24HR patch Apply 1 (one) patch to skin once daily 30 patch 1 Active multivitamin daily tabletIndicatio ns:Alcohol dependence with unspecified alcohol-induced disorder (HCC) Take 1 (one) tablet by mouth once daily 1 Active famotidine (PEPCID) 20 MG tablet Take 1 (one) tablet by mouth once daily 30 tablet 1 Active thiamine (VITAMIN B-1) 100 MG tabletIndicatio ns:Alcohol dependence with unspecified alcohol-induced disorder (HCC) Take 1 (one) tablet by mouth once daily 30 tablet 1 Active Active Problems Problem Noted Date Diagnosed Date Frequent PVCs 02/08/2021 Depression 02/08/2021 Chest pain 02/07/2021 Alcohol use disorder, moderate, dependence 02/07 Family History Medical History Relation Name Comments CAD (Coronary Artery Disease) Mother Relation Name Status Comments Mother Social History Tobacco Use Types Packs/Day Years Used Date Smoking Tobacco: Every Day Cigarettes Smokeless Tobacco: Never Alcohol Use Standard Drinks/Week Comments Not Currently 0 (1 standard drink = 0.6 oz pur e alcohol) Sex and Gender Information Value Date Recorded Sex Assigned at Not on file Legal Sex Male 5:28 AM SENIOR ORACLE DBA Gender Identity Not on file Sexual Orientation Not on file Last Filed Vital Signs Vital Sign Reading Time Taken Comments Blood Pressure 135/77 02/11/2021 12:17 PM CDT Pulse 66 02/11/2021 12:17 PM CDT Temperature 36.5 C (97.7 F) 02/11/2021 12:17 PM CDT Respiratory Rate 18 02/11/2021 12:17 PM CDT Oxygen Saturation 97% 02/11/2021 12:17 PM CDT Inhaled Oxygen Concentration 60% 02/10/2021 7 :58 PM CDT Weight 136.1 kg (300 lb) 02/07/2021 1:29 PM CDT Height 187 cm (6' 1.62) 02/07/2021 1:29 PM CDT Body Mass Index 38.91 02/07/2021 1:29 PM CDT Plan of Treatment Health Maintenance Due Date Last Done Comments COLOGUARD (AGES 45-75) - COL ON CA SCREENING 1976 COLON MONITORING 1976 COLONOSCOPY - COLON CA SCREENING 1976 CT COLONOGRAPHY - COLON CA SCREENING 1976 Colorectal Cancer Screening 1976 FIT - COLON CA SCREENING 1976 FLEX SIG - COLON CA SCREENING 1976 HEPATITIS C SCREENING 07/25/1994 DTAP/TDAP/TD VACCINES (1 - Tdap) 1995 HEPATITIS B VACCINE (1 of 3 - 19+ 3-dose series) 1995 COVID-19 VACCINE (1 - 2023-2 5 season) 2024 DEPRESSION SCREENING 08/24/2024 INFLUENZA VACCINE (Season Ended) 2025 ZOSTER VACCINE (1 of 2) 2026 HIV SCREENING Completed 02/07/2021 HIB VACCINE Aged Out No longer eligi ble based on patient's age to complete this topic HPV VACCINE Aged Out No longer eligi ble based on patient's age to complete this topic MENINGOCOCCAL (Group B) VACC INE SHARED DECISION-MAKING Aged Out No longer eligibl e based on patient's age to complete this topic MENINGOCOCCAL GROUPS A/C/Y/W VACCINE Aged Out No longer eligible b ased on patient's age to complete this topic PNEUMOCOCCAL VACCINE Aged Out No long er eligible based on patient's age to complete this topic Procedures Procedure Name Priority Date/Time Associated Diagnosis Comments HIV-1 HIV-2 ANTIBODY + HIV P24 AG PANEL STAT 02/07/2021 2:00 PM CDT from Last 3 Months or Most Recently Relevant to Health Maintenance Results * HIV-1 HIV-2 ANTIBODY + HIV P24 AG PANEL (02/07/2021 2:00 PM CDT) HIV Antigen/Antibod y 1 & 2 Non-reacti ve Non-react matt 02/07/2021 3:08 PM CDT [facility] Comment:Neither HIV-1 p24 An tigen nor HIV-1/HIV-2 Antibodies are detected. Blood BLOOD SPECIMEN / Unknown Venipuncture / Unknown 02/07/2021 2:00 PM CDT 02/07/2021 2:03 PM CDT Moreno Rose MD LAB - CHEMISTRY ORDERABLES Fi nal Result Performing Organization Address City/State/[facility] [[email or web address]] de Phone Number [facility] [address] [place] [phone], [facility] [phone] from Last 3 Months or Most Recently Relevant to Health Maintenance Insurance [facility] Advance Directives * Full Code (Latest Code Status on File) Date Activated Date Inactivated Comments 02/07/2021 3:53 PM 02/11/2021 5:37 PM Care Teams Pie Bakery Laborer Relationship Specialty Start Date End Date Mary Benitez DO PCP - General Internal Medicine 02/07/21
--- OUTSIDE RECORDS SUMMARY | 2025-02-21 09:49 | XMS_ITS | Encounter Summary ---
Author Organization [facility] Address [address] [facility] [facility] [address] [facility] [address] [place] [address] Care Team Providers Care Food Science Professor Name Role Phone Horacio Benitez DO Primary Care Provider +1- [phone] Encounter Details Date Type Department Care Team (Late st Contact Info) Description 12/11/2016 Orders Only [facility] ProviderCherri MD [address] [place] [address] Social History Tobacco Use Types Packs/Day Years Used Date Smoking Tobacco: Never Assessed Sex and Gender Information Value Date Recorded Sex Assigned at Not on file Legal Sex Male 7:58 PM DIGITAL IMAGER Gender Identity Not on file Sexual Orientation Not on file documented as of this encounter Plan of Treatment Not on file documented as of this encounter Procedures Procedure Name Priority Date/Time Associated Diagnosis Comments CARDIOLOGY REPORT 12/11/2016 documented in this encounter Results * CARDIOLOGY REPORT (12/11/2016) Anatomical Region Laterality Modality Other Narrative 12/11/2016 Ordered by an unspecified provider. Historical Provider [facility] L[facility] ARMSTRONG Final Result documented in this encounter Visit Diagnoses Not on filedocumented in this encounter Care Teams Food Science Professor Relationship Specialty Start Date End Date Horacio Benitez DO PCP - General 12/12/16 documented as of this encounter
--- OUTSIDE RECORDS SUMMARY | 2025-02-21 09:49 | XMS_ITS | Referral Summary ---
Author Organization [facility] [address] Address [address] [place] [address] Care Team Providers Care Crm Consultant Name Role Phone Mary Benitez DO Primary Care Provider [phone] Allergies No known active allergies Medications colestipol [...] (11/18/2018): Added automatically from request for surgery [id number] Hip pain, bilateral 06/18/2018 Lumbar disc herniation [...] (03/29/2019): Added automatically from request for surgery [id number] Social History Tobacco Use Types Packs/Day Years [...] on file Legal Sex Male 7:58 PM [employer] Gender Identity Not on file Sexual Orientation Not on file Last Filed Vital Signs Vital Sign Reading Time Taken Comments Blood Pressure 124/90 10/17/2024 9:02 AM [employer] Pulse 67 10/17/2024 9:02 AM [employer] Temperature 36.3 C (97.3 F) 06/20/2022 5:30 PM CDT Respiratory Rate 16 10/22/2023 11:24 AM [employer] Oxygen Saturation 97% 10/17/2024 9:02 AM [employer] Inhaled Oxygen Concentration - - Weight 165.6 kg (365 lb) 10/17/2024 9:02 AM [employer] Height 188 cm (6' 2) 10/17/2024 9:02 AM [employer] Body Mass Index 46.86 10/17/2024 9:02 AM [employer] Plan of Treatment Not on file Medical Devices Implanted Type Area Resource Room Special Education Teacher Device Identifier Shelf Expiration Date Model / Serial / Lot [employer] [id number] Hollister 58mm 36mm Hip Neutral Liner Acetabular Altrx Sterile Latex Free - [id number] Implanted:Qty: 1 on 12/01/2018 by Hernando Ham MD at [facility] Left: Hip [employer] 10/22/2023 [id number] / / [id number] [employer] [id number] Hollister 58mm Sector Hip Shell Acetabular Gription Sterile Latex Free - [id number] Implanted:Qty: 1 on 12/01/2018 by Hernando Ham MD at [facility] Left: Hip [employer] 10/21/2028 [id number] / / [id number] [employer] [id number] Actis Collar Hip 7 Standard Offset Stem Femoral - [id number] Implanted:Qty: 1 on 12/01/2018 by Hernando Ham MD at [facility] Left: Hip [employer] 10/21/2028 [id number] / / [id number] [employer] [id number] Articul/Layo 36mm Cementless Hip +8.5mm 12/14 Taper Head Femoral Latex Free - [id number] Implanted:Qty: 1 on 12/01/2018 by Hernando Ham MD at [facility] Left: Hip [employer] 09/23/2023 [id number] / / [id number] [employer] [id number] Hollister 58mm Sector Hip Shell Acetabular Gription Sterile Latex Free - [id number] Implanted:Qty: 1 on 04/27/2019 by Hernando Ham MD at [facility] Right: Hip [employer] 02/20/2029 [id number] / / [id number] [employer] [id number] Hollister 58mm 36mm Hip Neutral Liner Acetabular Altrx Sterile Latex Free - [id number] Implanted:Qty: 1 on 04/27/2019 by Hernando Ham MD at [facility] Right: Hip [employer] 03/23/2024 [id number] / / [id number] [employer] [id number] Actis Collar Hip 8 Standard Offset Stem Femoral - [id number] Implanted:Qty: 1 on 04/27/2019 by Hernando Ham MD at [facility] Right: Hip [employer] 01/21/2029 [id number] / / [id number] [employer] [id number] Articul/Layo 36mm Cementless Hip +8.5mm 08/06 Taper Head Femoral Latex Free - [id number] Implanted:Qty: 1 on 04/27/2019 by Hernando Ham MD at [facility] Right: Hip [employer] 02/21/2024 [id number] / / [id number] Insurance [facility] CHOICE PLUS [facility] CHOICE PLUS [facility] CHOICE PLUS Advance Directives For more information, please contact: [phone] * Full Code (Latest Code Status on File) Date Activated Date Inactivated Comments 06/20/2022 1:38 AM 06/20/2022 11:03 PM * Full Code Date Activated Date Inactivated Comments 04/27/2019 1:56 PM 04/28/2019 9:21 PM * Full Code Date Activated Date Inactivated Comments 12/01/2018 4:43 PM 12/02/2018 6:40 PM Care Teams Crm Consultant Relationship Specialty Start Date End Date Mary Benitez DO PCP - General 12/12/16
--- OUTSIDE RECORDS SUMMARY | 2025-02-21 09:49 | XMS_ITS | Clinical Summary ---
Author Organization [employer] [address] [facility] Address [address] [place] [address] Care Team Providers Care Landscaping Crew Leader Name Role Phone MaribelgeovanniMary ellington DO Primary Care Provider Allergies No known active allergies Medications colestipol (COLESTID) 1 gram tablet take 4 tablet by oral route every day swallowing whole with any liquid. Do not crush, chew and/or divide. 7 Active DULoxetine (CYMBALTA) 60 mg Capsule, Delayed Release(E.C.) 60 mg. 7 Active rivaroxaban (XARELTO) 20 mg Tablet Take 20 mg by mouth. 8 Active acetaminophen (TYLENOL ORAL) Take by mouth. Active lidocaine (LIDODERM) 5 % Adhesive Patch, Medicated Apply 1 Patch to affected area every 24 hours. Active Active Problems Problem Noted Date Diagnosed Date Hip pain, bilateral 06/18/2018 Family History Medical History Relation Name Comments No Known Problems Daughter Stroke Father Other Mother No Known Problems Son Relation Name Status Comments Daughter Alive Father Alive Mother Alive Son Alive Social History Tobacco Use Types Packs/Day Years Used Date Smoking Tobacco: Every Day Cigarettes Tobacco Cessation:Ready to Q uit: No; Counseling Given: Yes Alcohol Use Standard Drinks/Week Comments Yes 0 (1 standard drink = 0.6 oz pur e alcohol) Sex and Gender Information Value Date Recorded Sex Assigned at Not on file Legal Sex Male 3:57 PM CDT Gender Identity Not on file Sexual Orientation Not on file Last Filed Vital Signs Vital Sign Reading Time Taken Comments Blood Pressure 142/100 06/18/2018 1:15 PM CDT Pulse - - Temperature - - Respiratory Rate - - Oxygen Saturation - - Inhaled Oxygen Concentration - - Weight - - Height 188 cm (6' 2) 06/18/2018 1:15 PM CDT Body Mass Index - - Plan of Treatment Health Maintenance Due Date Last Done Comments DTAP/TDAP/TD VACCINES (1 - Tdap) 1995 HEPATITIS B VACCINES (1 of 3 - 19+ 3-dose series) 01/1995 COLORECTAL SCREENING 2021 Colorectal Cancer Screening 2021 FIT-DNA Q 3 years 2021 FIT/FOBT Q 1 year 2021 Flex Sig/CT Colonography Q 5 years 2021 INFLUENZA VACCINE (#1) 2024 Insurance [place] [id number] [facility] [id number] Care Teams Landscaping Crew Leader Relationship Specialty Start Date End Date Mary Benitez DO [address] [place] [address] PCP - General Internal Medicine 05/19/18
[2025-02-21 15:21] LABS: Alanine Aminotransferase 39 U/L (6-50); Albumin Level 4.2 g/dL (3.5-5.1); Alkaline Phosphatase 67 U/L (38-126); Anion Gap 11 mmol/L (4-12); Aspartate Amino Transferase 77 U/L (17-59); Bilirubin,Total 0.8 mg/dL (0.2-1.3); Blood Urea Nitrogen 9 mg/dL (9-20); Calcium 9.0 mg/dL (8.4-10.2); Carbon Dioxide 26 mmol/L (22-30); Chloride 101 mmol/L (98-107); Cholesterol 103 mg/dL (0-200); Estimated Glomerular Filt Rate > 60; Glucose 104 mg/dL (65-110); HDL Direct 33 mg/dL; Potassium 4.2 mmol/L (3.4-5.0); Sodium 138 mmol/L (137-145); Total Protein 7.1 g/dL (6.3-8.2); Triglycerides 89 mg/dL (<150)
[2025-02-21 15:56] LABS: Hematocrit 43.0 % (42.0-52.0); Hemoglobin 14.3 g/dL (14.0-18.0); Immature Granulocyte Percent A 0.2 % (0-0.5); Lymphocytes Absolute Auto 1.78 K/mm3 (0.9-3.2); Mean Corpuscular HGB Conc 33.3 g/dl (32-36); Mean Corpuscular Hemoglobin 33.4 pg (26-34); Mean Corpuscular Volume 100.5 fl (80-100); Nucleated Red Blood Cells Absolute Auto 0.000 K/mm3 (0.0-0.012); Nucleated Red Blood Cells Perc 0.0 % (0.0-0.2); Platelet Count Result 262 k/mm3 (150-375); Red Blood Count 4.28 M/mm3 (4.6-6.20); White Blood Count 6.4 K/mm3 (4.5-10.0)
== END 2025-02-21 09:37 | disposition home or self-care (01) ==
LOC: ANHGOSHLAB 09:37
PROVIDERS: PCP Internal Medicine; Visit Provider Nurse Practitioner
DX: Z13.29 Encounter for screening for other suspected endocrine disorder (principal); Z13.220 Encounter for screening for lipoid disorders
CPT/HCPCS: 36415; 80053; 80061; 85025

== ENCOUNTER 2025-03-09 14:24 | Outpatient (CLI) | payer OTHER, SELFPAY | END 2025-03-09 14:25 | disposition home or self-care (01) | LOC: ANHAUDIO 14:25 | PROVIDERS: PCP Internal Medicine; Visit Provider Nurse Practitioner | DX: H90.3 Sensorineural hearing loss, bilateral (principal); H93.13 Tinnitus, bilateral | CPT/HCPCS: 92557; 92567 ==